=== PATIENT | female | born 1975 | race Caucasian/White ===

== ENCOUNTER 2016-12-22 12:21 | Observation (INO) ==
[2016-12-22] MEDS ORDERED: Ipratropium/Albuterol Neb 3 ML IH ONE (12:24)
[2016-12-22] MEDS ORDERED: Azithromycin 500 MG in D5% in Water 250 ML IVPB ONE (12:25)
[2016-12-22] MEDS ORDERED: CefTRIAXone 1,000 MG in D5% in Water (Mini-Bag+) 100 ML IVPB ONE (12:25)
[2016-12-22] MEDS ORDERED: 0.9 % Sodium Chloride 1,000 ML IVC SCH ×2 (12:30→14:52)
--- NOTE | 2016-12-22 12:43 | Emergency Department Note ---
Disposition Clinical Impression: Acute asthmatic bronchitis Disposition: Admitted As Inpatient Condition: Good Referrals: Alesha Morgan MD [Primary Care Provider] - Forms: ED Satisfaction Letter Time of Disposition: 13:39 (jacquie [email or web address]) Asthma HPI - General Chief Complaint: ED Asthma Stated Complaint: difficulty breathing Time Seen by Provider: 12/22/16 12:24 Source: patient Mode of arrival: ambulatory Limitations: no limitations Nursing Notes Reviewed: Yes Vital Signs Reviewed: Yes - History of Present Illness HPI Narrative: She has been having fever cough congestion shortness of breath increased worsening dyspnea over the past couple of days this had fever has had exposure to influenza and diarrhea melena hematochezia or hematemesis unable to walk about the house again dyspnea denies any abdominal pain or discomfort states her heart is racing she has tried using aerosols at home with little relief she denies blurred vision double vision loss vision numbness tingling weakness recent weight gain or weight loss all systems have been reviewed and otherwise negative with complete entire review of systems Pt Subjective Complaint: "asthma attack", shortness of breath, wheezing Onset (ago): day(s) Severity: moderate Context: recent URI Associated symptoms: Reports: cough, sputum production, fever Asthma History: adult onset, history of frequent attacks, history of prior ED visit Treatments Prior to Arrival: inhaled bronchodilator, home medications - Related Data Home Medications Medication Instructions Recorded Confirmed Albuterol Neb [Proventil Neb] 2.5 mg IH Q4HR 09/27/16 12/22/16 Albuterol Sulfate [Proair Hfa] 1 puff IH Q4-6H PRN 09/27/16 12/22/16 Fluticasone Propionate Nasal 1 spray NS DAILY 09/27/16 12/22/16 [Flonase] Fluticasone/Salmeterol [Advair 1 each IH BID 09/27/16 12/22/16 250-50 Diskus] Montelukast [Singulair] 10 mg PO DAILY 09/27/16 12/22/16 Previous Rx's Medication Instructions Recorded Albuterol Sulfate [Albuterol 2 puff IH Q6HR #1 hfa.aer.ad 09/27/16 Inhaler] Allergies Allergy/AdvReac Type Severity Reaction Status Date / Time No Known Allergies Allergy Verified 01/21/16 21:39 All systems ED: reviewed and negative except as stated. Constitutional: Reports: fever. Denies: chills, weakness Eyes: Denies: vision change ENT ED: Reports: congestion. Denies: ear pain, throat pain Cardiovascular: Denies: chest pain, palpitations, dyspnea on exertion Respiratory: Reports: cough, dyspnea, wheezes, sputum production Gastrointestinal: Denies: abdominal pain, nausea, vomiting Genitourinary: Denies: urgency, dysuria Musculoskeletal: Denies: back pain, neck pain Integumentary: Denies: abrasion, lesions Neurological: Denies: headache Psychiatric: Denies: anxiety Endocrine: Denies: fatigue Hematological/Lymphatic: Denies: easy bleeding Allergic/Immunologic: Denies: facial swelling Asthma PMH - Past Medical History Medical history: Reports: asthma Female Surgical History: Reports: cholecystectomy Psychiatric history: Reports: no psych history [employer]ET[employer] A[employer]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 - Social History Smoking Status: Current every day smoker Alcohol use: Reports: rarely Drug use: Reports: none Physical Exam - General Limitations: no limitations General appearance: alert, anxious, in distress - Head Head exam: atraumatic, normocephalic, normal inspection - Eye Eye exam: Present: normal appearance, PERRL, EOMI - ENT ENT exam: normal exam, normal oropharynx, mucous membranes moist, TM's normal bilaterally, normal external ear exam - Neck Neck exam: Present: normal inspection, full ROM, trachea midline - Chest Chest inspection: Present: normal inspection, symmetric chest wall rise - Respiratory Respiratory exam: Present: wheezes, accessory muscle use, prolonged expiratory phase - Cardiovascular Cardiovascular exam: Present: regular rate, normal rhythm, normal heart sounds - Abdominal Exam Abdominal exam: Present: soft, Non-Tender, normal bowel sounds. Absent: mass, pulsatile mass - Expanded Upper Extremity Exam Shoulder exam: Present: normal inspection, full ROM Arm exam: Present: normal inspection, full ROM Elbow exam: Present: normal inspection, full ROM Forearm/Wrist exam: Present: normal inspection, full ROM Hand exam: Present: normal inspection, full ROM Vascular exam: Normal: capillary refill, radial pulse - Expanded Lower Extremity Exam Hip/Pelvis exam: Present: normal inspection, full ROM Upper leg exam: Present: normal inspection, full ROM Knee exam: Present: normal inspection, full ROM Lower leg exam: Present: normal inspection, full ROM Ankle exam: Present: normal inspection, full ROM Foot/toe exam: Present: normal inspection, full ROM Neurovascular/Tendon exam: Present: normal capillary refill, normal fine/light touch. Absent: motor deficit, sensory deficit, tendon deficit Gait: observed and normal - Back Exam Back exam: Present: normal inspection, full ROM. Absent: muscle spasm - Neurological Exam Neurological exam: Present: alert, oriented X3, CN II-XII intact - Psychiatric Psychiatric exam: Present: normal affect, normal mood - Skin Skin exam: Present: warm, dry, intact, normal color Course Course Narrative: Seen and examined the patient immediately given a bronchodilator and abdomen upon arrival to the emergency room 2 patient had a little bit easing of her symptoms at that time she was started on antibiotics and Solu-Medrol awaiting laboratory data and chest x-ray to determine if hospitalization which will most likely be recommendations because of how tight she was with mild hypoxia - Reevaluation(s) Reevaluation #1: Patient has been resting comfortably trying to sleep but is still having some mild respiratory distress respiratory rates been running in the 20s and sats hold about 93% patient be admitted service of Dr. Kovacs for observation Vital Signs Temperature 98.9 F 12/22/16 12:23 Pulse Rate 129 12/22/16 12:23 Respiratory Rate 22 12/22/16 12:23 Blood Pressure 137/88 12/22/16 12:23 O2 Sat by Pulse Oximetry 94 L 12/22/16 12:23 Temperature 98.9 F 12/22/16 12:26 Pulse Rate 129 12/22/16 12:26 Respiratory Rate 22 12/22/16 12:26 Blood Pressure 137/88 12/22/16 12:26 O2 Sat by Pulse Oximetry 94 L 12/22/16 12:26 Oxygen Delivery Oxygen Delivery Room Air Asthma - Differential Diagnosis Differential diagnosis asthma: Likely: Acute exacerbation, Status asthmaticus, Acute asthmatic bronchitis, COPD exacerbation - Medical Records Medical records reviewed: Yes I reviewed the patient's medical records. - Lab Data Lab results reviewed: Yes I reviewed the patient's lab results. Result diagrams: 12/22/16 12:50 12/22/16 12:50 Lab Results 12/22/16 12/22/16 12/22/16 Range/Units 12:50 12:50 12:50 WBC 11.6 H (4.3-11.1) K/mcL RBC 4.60 (3.82-4.97) M/mcL Hgb 12.8 (11.5-15.4) g/dL Hct 38.8 (35.3-44.9) % MCV 84.3 (83.0-100.0) fL MCH 27.8 L (28.0-33.3) pg MCHC 33.0 (31.6-35.5) g/dL RDW 14.5 (11.5-14.5) % Plt Count 291 (140-400) K/mcL MPV 10.4 (9.4-12.4) fL Immature Gran % 0.3 (0-4) % Seg Neutrophils % 91.2 % Lymphocytes % 5.1 % Monocytes % 2.7 % Eosinophils % 0.4 % Basophils % 0.3 % Neutrophils # 10.6 H (1.6-8.9) K/mcL Lymphocytes # 0.6 (0.6-4.6) K/mcL Monocytes # 0.3 (0.0-1.3) K/mcL Eosinophils # 0.1 (0.0-0.6) K/mcL Basophils # 0.0 (0.0-0.2) K/mcL PT 11.8 (9.4-12.1) Seconds INR 1.1 APTT 30.3 (26.0-36.0) Seconds Sodium 140 (136-145) mEq/L Potassium 3.9 (3.5-4.5) mEq/L Chloride 106 (98-109) mEq/L Carbon Dioxide 22 (19-29) mEq/L BUN 6 L (7-20) mg/dL Creatinine 0.81 (0.57-1.11) mg/dL Est GFR ( Amer) > 60 (> 60) Est GFR (Non-Af Amer) > 60 (> 60) BUN/Creatinine Ratio 7 (6-26) Glucose 111 H (70-99) mg/dL Calculated Osmolality 288 (280-300) Calcium 9.4 (8.6-10.8) mg/dL - Radiology Data Radiology results reviewed: Yes I reviewed the patient's radiology results. ITS Impressions Chest X-Ray 12/22/16 12:26 IMPRESSION: No acute cardiopulmonary disease. D/ / Jean Paul Brice MD / Jean Paul Brice MD Interpreting Provider: Jean Paul Brice MD - EKG Data EKG #1 EKG attestation: Yes I reviewed and interpreted this EKG. EKG results narrative: Sinus tach nonspecific T-wave changes rate 122 ID 152 QRS 87 QT 338 axis XLVI Critical Care Time Critical Care Time: Yes Total Critical Care Time: 35 Attestation: Critical care performed: 35 minutes due to the respiratory distress that the patient initially presented in and then managing of her acute exacerbation of COPD bronchitis at one point she did have a heart rate that went to 160 which then resolved immediately back to 120 this may also be secondary to the patient' s respiratory distress patient admitted for observation Time is exclusive of separately billable procedures. Time includes: direct patient care, patient reassessment, coordination of patient care, interpretation of data (laboratory data, radiology data, and respiratory data), review of patient's medical records, medical consultation and documentation of patient care. Procedures included in critical care time: Procedures excluded from critical care time:
[2016-12-22 12:58] LABS: Basophils % 0.3 %; Eosinophils # 0.1 K/mcL (0.0-0.6); Eosinophils % 0.4 %; Hematocrit 38.8 % (35.3-44.9); Hemoglobin 12.8 g/dL (11.5-15.4); Immature Granulocytes % 0.3 % (0-4); Lymphocytes # 0.6 K/mcL (0.6-4.6); Lymphocytes % 5.1 %; Mean Corpuscular Hemoglobin 27.8 pg (28.0-33.3); Mean Corpuscular Volume 84.3 fL (83.0-100.0); Mean Platelet Volume 10.4 fL (9.4-12.4); Monocytes # 0.3 K/mcL (0.0-1.3); Monocytes % 2.7 %; Neutrophils # 10.6 K/mcL (1.6-8.9); Platelet Count 291 K/mcL (140-400); Red Cell Distribution Width 14.5 % (11.5-14.5); Segmented Neutrophils % 91.2 %
[2016-12-22 13:03] LABS: INR 1.1; Prothrombin Time 11.8 Seconds (9.4-12.1)
[2016-12-22 13:06] LABS: Activated Partial Thrombo Time 30.3 Seconds (26.0-36.0)
[2016-12-22 13:13] LABS: BUN/Creatinine Ratio 7 (6-26); Blood Urea Nitrogen 6 mg/dL (7-20); Calcium 9.4 mg/dL (8.6-10.8); Carbon Dioxide 22 mEq/L (19-29); Chloride 106 mEq/L (98-109); Glucose 111 mg/dL (70-99); Osmolality,Calculated 288 (280-300); Potassium 3.9 mEq/L (3.5-4.5); Sodium 140 mEq/L (136-145); eGFR For African Americans > 60 (> 60); eGFR For Non-African Americans > 60 (> 60)
[2016-12-22] MEDS ORDERED: Ondansetron 4 MG/2 ML VIAL IV ONE (14:12)
[2016-12-22] MEDS ORDERED: Azithromycin 500 MG in D5% in Water 250 ML IVPB SCH (14:52)
[2016-12-22] MEDS ORDERED: Albuterol 2.5 MG/3 ML NEBULIZER IH PRN (14:52)
[2016-12-22] MEDS ORDERED: Naloxone 0.4 MG/ML INJ IVP PRN (14:52)
[2016-12-22] MEDS ORDERED: *HR* HYDROcodone/Acet 5/325 mg TABLET PO PRN (14:52)
--- NOTE | 2016-12-22 15:56 | Electrocardiograph Report ---
[address] [address] Test Date: 2016-12-22 Pat Name: Aviva Lackey Department: [id number] Room: [facility] Gender: F Pheresis Specialist: : [id number] Requested By: Dori Reyes Order Number: [id number] Reading MD: Love Lopez Measurements Intervals [place] Rate: 122 P: 67 [place]: 152 QRS: 46 QRSD: 87 T: 63 QT: 338 QTc: 410 Interpretive Statements SINUS TACHYCARDIA NONSPECIFIC ST \T\ T-WAVE ABNORMALITY ABNORMAL RHYTHM ECG Electronically Signed On 12-22-2016 15:55:00 EST by Love Lopez
[2016-12-22] MEDS: Ipratropium/Albuterol Neb 3 ML IH SCH ×2 (17:33→23:38)
--- NOTE | 2016-12-22 19:35 | Internal Med History&Physical ---
Date of Encounter: 12/22/16 Time of Encounter: 19:00 Assessment and Plan (1) Acute asthmatic bronchitis Current visit: Yes Status: Acute She reports she has missed most of her pulmonary medicines since December 20 because she was "too sick to take it". She will be started back on inhaled corticosteroids and her other medications. Encouraged her strongly to discontinue smoking. Further workup will be done as needed. Internal Medicine - H&P: HPI Chief complaint: Dyspnea Admitted From: Home Plans for Post Hospital Care: Home History of present illness: Ms. Lackey is a 41 year old female who came to emergency room stating she had onset of dyspnea the evening of December 20. She initially had a sore throat but that resolved over the next 2 days. She had a cough that was nonproductive. She felt low-grade fever was present. When she did not improve after 2 days she came to emergency room and was diagnosed with acute asthmatic bronchitis. She was admitted to [facility] floor for ongoing care needs. Her respiratory history significant for having smoked since age 13 up to 1-1/2 packs per day. She claims she had PFTs approximately 3 years ago and was told she had early COPD. She does not wear home oxygen. She has not been tested for sleep apnea. Past Med Surg Social Fam HX - Past Medical History Medical history: asthma Psychiatric history: no psych history - Social History Smoking Status: Current every day smoker Smokeless Tobacco Status: No Alcohol use: rarely Drug use: none - Family History Mother Living Status: Still Living Hx Family Cardiac Disorders: Yes Hx Family Endocrine Disorder: Yes Internal Medicine - H&P: Meds Albuterol Neb [Proventil Neb] 2.5 mg IH Q4HR 09/27/16 [History] Albuterol Sulfate [Albuterol Inhaler] 2 puff IH Q6HR #1 hfa.aer.ad 09/27/16 [Rx] Albuterol Sulfate [Proair Hfa] 1 puff IH Q4-6H PRN 09/27/16 [History] Fluticasone Propionate Nasal [Flonase] 1 spray NS DAILY 09/27/16 [History] Fluticasone/Salmeterol [Advair 250-50 Diskus] 1 each IH BID 09/27/16 [History] Montelukast [Singulair] 10 mg PO DAILY 09/27/16 [History] Allergies No Known Allergies Allergy (Verified 01/21/16 21:39) All Systems PM: A 10-system review of systems was performed and is negative for pertinent findings except as documented above in the HPI. Review of systems: Gen.: Her weight has been stable the last few months Cardiovascular: She denies hypertension AL heart failure angina DVT or pulmonary embolus Respiratory: As per history of present illness GI: She has had cholecystectomy. She was treated for diverticulitis a few weeks ago. She denies disorders of her liver or exocrine pancreas. She has had umbilical hernia repair in the past : She passed 2 kidney stones in the past 6 months. She denies other kidney or bladder disorders. Neurologic: She denies large distribution strokes seizures migraine headaches or syncope. Endocrine: She denies diabetes thyroid disease or hyperlipidemia Hematology/oncology: She denies blood disorders or cancers or anemia Psychiatric: She denies anxiety depression or other mental health issues Musk skeletal: She denies arthritis gout or other bone joint or muscle disorders. - Constitutional Vitals: Temp Pulse Resp BP Pulse Ox 99.7 F H 127 26 129/75 95 12/22/16 14:57 12/22/16 14:57 12/22/16 17:33 12/22/16 14:57 12/22/16 17:33 Exam: Gen.: She is well-developed well-nourished female who appears in mild respiratory distress at present time. HEENT: Head is atraumatic and normocephalic. Eyes: EOMI. There is no scleral icterus. Mouth: Mucosa is moist. Neck: Supple and nontender. There is no thyromegaly or adenopathy noted. Heart: Regular without murmurs gallops or ectopics. Lungs: No wheezes or crackles are heard. Abdomen: Soft and nontender. No masses or guarding are noted. Extremities: There is no cyanosis edema or clubbing noted. Dorsalis pedis and posttibial pulses are 2 over 2 bilaterally. Neurologic: Mental status: She is talkative and a good historian. Cranial nerves: Smile is symmetric. Forehead wrinkles bilaterally. Tongue protrudes midline. EOMI. Motor: There is no pronator drift. Cerebellar: Finger to nose is intact bilaterally. Skin: Warm and dry Internal Med - H&P Results - Labs CBC & Chem 7: 12/22/16 12:50 12/22/16 12:50
[2016-12-22] MEDS ORDERED: 0.45 % Sodium Chloride w/KCl 20 MEQ/1,000 ML MLS IVC SCH (19:45)
[2016-12-22] MEDS: Levalbuterol Neb 1.25 MG/3 ML IH PRN ×2 (19:54→21:50)
[2016-12-22] MEDS: Nicotine 21 MG PATCH.TD24 TD SCH (20:15)
[2016-12-22] MEDS: Azithromycin 250 MG TABLET PO SCH (20:15)
[2016-12-22] MEDS: Budesonide/Formoterol 160/4.5 MDI IH SCH (21:50)
[2016-12-23] MEDS: Levalbuterol Neb 1.25 MG/3 ML IH PRN ×2 (02:43→08:46)
[2016-12-23 05:04] LABS: Hemoglobin 11.8 g/dL (11.5-15.4); Immature Granulocytes % 0.8 % (0-4); Lymphocytes # 0.5 K/mcL (0.6-4.6); Lymphocytes % 4.9 %; Mean Corpuscular HGB Conc 32.8 g/dL (31.6-35.5); Mean Corpuscular Hemoglobin 27.8 pg (28.0-33.3); Mean Corpuscular Volume 84.9 fL (83.0-100.0); Mean Platelet Volume 10.6 fL (9.4-12.4); Monocytes # 0.2 K/mcL (0.0-1.3); Monocytes % 1.3 %; Neutrophils # 10.4 K/mcL (1.6-8.9); Platelet Count 322 K/mcL (140-400); Red Blood Count 4.24 M/mcL (3.82-4.97); Red Cell Distribution Width 14.6 % (11.5-14.5)
[2016-12-23 05:27] LABS: Magnesium 1.9 mg/dL (1.6-2.6)
[2016-12-23] MEDS: Ipratropium/Albuterol Neb 3 ML IH SCH ×2 (05:30→11:20)
[2016-12-23 05:33] LABS: BUN/Creatinine Ratio 10 (6-26); Blood Urea Nitrogen 8 mg/dL (7-20); Calcium 9.4 mg/dL (8.6-10.8); Carbon Dioxide 16 mEq/L (19-29); Chloride 111 mEq/L (98-109); Glucose 186 mg/dL (70-99); Osmolality,Calculated 293 (280-300); Sodium 140 mEq/L (136-145); eGFR For African Americans > 60 (> 60); eGFR For Non-African Americans > 60 (> 60)
[2016-12-23 05:58] LABS: Thyroid Stimulating Hormone 0.558 mcIU/mL (0.350-4.840)
[2016-12-23 07:22] VITALS: BP 111/68
[2016-12-23] MEDS: Budesonide/Formoterol 160/4.5 MDI IH SCH (08:47)
[2016-12-23] MEDS ORDERED: CefTRIAXone 1,000 MG in D5% in Water (Mini-Bag+) 100 ML IVPB SCH (09:00)
[2016-12-23] MEDS: Nicotine 21 MG PATCH.TD24 TD SCH (09:19)
[2016-12-23] MEDS: Azithromycin 250 MG TABLET PO SCH (09:19)
--- NOTE | 2016-12-23 11:08 | Discharge Summary ---
Date of Encounter: 12/23/16 Time of Encounter: 10:50 - Discharge Diagnosis (1) Acute asthmatic bronchitis Priority: Primary Status: Acute - Discharge Medications Prescriptions: Albuterol Neb [Proventil Neb] 2.5 mg IH Q4HR #30 inhsol Cefuroxime PO [Ceftin] 500 mg PO Q12HR #6 tablet Albuterol Sulfate [Albuterol Inhaler] 2 puff IH Q4H PRN #1 hfa.aer.ad PRN Reason: Dyspnea Azithromycin [Zithromax] 250 mg PO DAILY #3 tablet Lactobacillus [Culturelle] 1 each PO BID #6 cap.sprink Metoprolol XL (24 HR) Succ [Toprol XL] 25 mg PO DAILY #30 tab.er.24h PredniSONE 20 mg PO BIDWM #6 tablet Home Medications: Albuterol Sulfate [Proair Hfa] 1 puff IH Q4-6H PRN 09/27/16 [History] Fluticasone Propionate Nasal [Flonase] 1 spray NS DAILY 09/27/16 [History] Fluticasone/Salmeterol [Advair 250-50 Diskus] 1 each IH BID 09/27/16 [History] Montelukast [Singulair] 10 mg PO DAILY 09/27/16 [History] Albuterol Neb [Proventil Neb] 2.5 mg IH Q4HR #30 inhsol 12/23/16 [Rx] Albuterol Sulfate [Albuterol Inhaler] 2 puff IH Q4H PRN #1 hfa.aer.ad 12/23/16 [ Rx] Azithromycin [Zithromax] 250 mg PO DAILY #3 tablet 12/23/16 [Rx] Cefuroxime PO [Ceftin] 500 mg PO Q12HR #6 tablet 12/23/16 [Rx] Lactobacillus [Culturelle] 1 each PO BID #6 cap.sprink 12/23/16 [Rx] Metoprolol XL (24 HR) Succ [Toprol XL] 25 mg PO DAILY #30 tab.er.24h 12/23/16 [ Rx] PredniSONE 20 mg PO BIDWM #6 tablet 12/23/16 [Rx] Allergies/Adverse Reactions: Allergies No Known Allergies Allergy (Verified 01/21/16 21:39) Date of admission: 12/22/16 14:23 Primary care physician: David Michel CNP - Patient Status Disposition: Home, Self-Care Condition: Good Overall status at discharge: patient is progressing back to baseline - Discharge Instructions Follow Up With: David Michel CNP [Advanced Practice Nurse] - 1 week - Diet and Activity Diet: advance to your usual diet Hospital course: Ms. Lackey is a 41 year old female who came to emergency room stating she had onset of dyspnea the evening of December 20. She initially had a sore throat but that resolved over the next 2 days. She had a cough that was nonproductive. She felt low-grade fever was present. When she did not improve after 2 days she came to emergency room and was diagnosed with acute asthmatic bronchitis. She was admitted to [facility] for ongoing care needs. Her respiratory history significant for having smoked since age 13 up to 1-1/2 packs per day. She claims she had PFTs approximately 3 years ago and was told she had early COPD. She does not wear home oxygen. She has not been tested for sleep apnea. Initial orders were written by the emergency room physician. I saw her on December 22 and performed a history and physical. She was started on Rocephin and Zithromax IV. IV Solu-Medrol was also given. When I saw her on November 25 she felt vacantly improved and stable for discharge home which I felt was reasonable. WBC was 11.1 K on day of discharge with 93% segs. She will continue with antibiotic and probiotic with prednisone for 3 additional days after discharge. I encouraged her to remain a nonsmoker. Room air oximetry will be checked prior to discharge on a 6 minute walk. She will follow with a PCP within one week. - Time Spent with Patient Total time spent providing and/or coordinating discharge services: - Constitutional Vitals: Temp Pulse Resp BP Pulse Ox 97.8 F 100 18 111/68 95 12/23/16 07:18 12/23/16 07:18 12/23/16 08:48 12/23/16 07:18 12/23/16 09:45
== END 2016-12-23 12:36 | disposition home or self-care (01) ==
LOC: EMEROOPIK 12:21 → INPPIK 12:21
PROVIDERS: ADMIT Internal Medicine; ATTEND Internal Medicine